=== PATIENT | male | born 1990 | race Caucasian/White ===

== ENCOUNTER 2017-01-06 18:45 | Emergency (ER) | payer MEDICAID, OTHER ==
[~2017-01-06] VITALS: Ht 198.1 cm; Wt 94.4 kg
[2017-01-06 18:54] VITALS: BP 126/76
[2017-01-06] MEDS ORDERED: IBUPROFEN 200 MG TABLET PO ONE (19:30)
[2017-01-06] MEDS ORDERED: IBUPROFEN 200 MG TABLET ONE (19:30)
== END 2017-01-06 20:24 | disposition home or self-care (01) ==
LOC: ED 20:18
DX: S62.337A Displaced fracture of neck of fifth metacarpal bone, left hand, initial encounter for closed fracture (principal); G89.11 Acute pain due to trauma; J45.909 Unspecified asthma, uncomplicated; Z88.0 Allergy status to penicillin; W18.2XXA Fall in (into) shower or empty bathtub, initial encounter; Y93.E1 Activity, personal bathing and showering; Y92.091 Bathroom in other non-institutional residence as the place of occurrence of the external cause; Y99.8 Other external cause status
CPT/HCPCS: 29125; 99284

== ENCOUNTER 2018-06-30 13:11 | Emergency (ER) | payer SELFPAY ==
[~2018-06-30] VITALS: Ht 198.1 cm; Wt 98.6 kg
--- NOTE | 2018-06-30 13:26 | NUR ---
Pt to room from lobby.
--- NOTE | 2018-06-30 13:35 | NUR ---
RONNIE WALKED FROM WAITIGN ROOM. DENIES SOB, WORSE CP WITH WALKING. DECLINES WHEELCHAIR
[2018-06-30] MEDS ORDERED: ASPIRIN 81 MG TABLET CHEW PO ONE (14:00)
[2018-06-30] MEDS ORDERED: NITROGLYCERIN SINGLE TAB 0.4 MG SL ONE (14:13)
[2018-06-30] MEDS ORDERED: ASPIRIN 81 MG TABLET CHEW ONE (14:14)
[2018-06-30] MEDS: NITROGLYCERIN SINGLE TAB 0.4 MG SL PRN ×3 (14:29→15:03)
[2018-06-30 14:39] LABS: BASOPHILS % (AUTO) 2 % (0-1); EOSINOPHILS # (AUTO) 0.16 x10^3/uL (0-0.4); EOSINOPHILS % (AUTO) 2 % (1-7); LYMPHOCYTES # (AUTO) 1.37 x10^3/uL (1-3.4); LYMPHOCYTES % (AUTO) 19 % (22-44); MD NO; MEAN CORPUSCULAR HGB CONC 33.8 g/dL (33.2-36.2); MEAN CORPUSCULAR VOLUME 88.6 fL (81-97); MEAN PLATELET VOLUME 7.6 fL (7.4-10.4); MONOCYTES # (AUTO) 0.56 x10^3/uL (0.2-0.8); MONOCYTES % (AUTO) 8 % (2-9); NEUTROPHILS # (AUTO) 4.92 x10^3/uL (1.8-6.8); NEUTROPHILS % (AUTO) 69 % (42-75); PLATELET COUNT 299 x10^3/uL (130-400); RED BLOOD COUNT 5.27 x10^6/uL (4.38-5.82); RED CELL DISTRIBUTION WIDTH 12.8 % (9.4-14.8)
[2018-06-30 14:44] LABS: ALBUMIN 4.1 g/dL (3.4-5.0); ANION GAP 4 mmol/L (5-15); CALCIUM 8.7 mg/dL (8.5-10.1); CHLORIDE 109 mmol/L (98-107)
[2018-06-30 14:50] LABS: ALANINE AMINOTRANSFERASE 22 U/L (12-78); ALKALINE PHOSPHATASE 83 U/L (45-117); BILIRUBIN,TOTAL 0.5 mg/dL (0.2-1.0); CREATININE 1.01 mg/dL (0.7-1.3); TOTAL PROTEIN 7.3 g/dL (6.4-8.2); TROPONIN I < 0.015 ng/mL (0.000-0.045)
--- NOTE | 2018-06-30 16:33 | NUR ---
Task RN: Discharge instructions discussed with patient including when to return to emergency department, verbalizes understanding. Prescription provided with instruction for use. Patient ambulates with steady gait to discharge desk in no acute distress.
[2018-06-30 16:34] VITALS: BP 111/68
== END 2018-06-30 16:36 | disposition home or self-care (01) ==
LOC: ED 16:00
DX: R07.89 Other chest pain (principal); J45.909 Unspecified asthma, uncomplicated
CPT/HCPCS: 36415; 71045; 80053; 83690; 84484; 85025; 93005; 99284